=== PATIENT | female | born 1940 | race Caucasian/White ===

== ENCOUNTER 2022-01-08 18:44 | Emergency (ER) | payer MEDICARE, SELFPAY ==
--- NOTE | ~2022-01-08 | XR_ITS ---
EXAMINATION: XR CHEST CLINICAL INFORMATION: Cough COMPARISON: None TECHNIQUE: Frontal view of the chest was obtained. FINDINGS: The mid-upper lung zones are grossly clear. There is no effusion. There is a density in the right base. Measures 1.3 cm. This could represent calcification anterior cartilage of the rib but an underlying lung nodule cannot be excluded. Left lung is grossly clear. XR/XR chest 1V IMPRESSION: No infiltrate or effusion. Density at the right base could be an unusual appearance to calcification of an anterior cartilage however an underlying lung nodule cannot be excluded. Consider oblique imaging versus CT to further evaluate
[2022-01-08 19:27] VITALS: BP 140/76; PULSE 74; O2SAT 99
[2022-01-08 19:35] VITALS: BP 134/65; PULSE 74; RESP 18; TEMP 36.1; O2SAT 97; BMI 24.7
[2022-01-08 20:10] LABS: Influenza A Negative (Negative)
[2022-01-08 20:11] LABS: COVID-19 Test Negative (Negative); IDNOW Serial# 16C4AD1C; Influenza B2 Negative (Negative)
--- NOTE | 2022-01-08 20:21 | ED.URI ---
HPI - URI/Sore Throat General Chief Complaint: Upper Respiratory Symptoms Stated Complaint: weakness Time Seen by Provider: 01/08/22 20:02 Source: patient Mode of arrival: EMS Limitations: no limitations History of Present Illness HPI Narrative: 81 yo female with hx of DM and MS reports 4 COVID shots and flu shot on Wednesday. Wednesday went to a movie theatre. Since Wednesday the patient c/o runny nose / sore throat and persistent cough that is making it hard to sleep / breath and hurting her ribs MD elicited complaint: cough, sore throat and rhinorrhea Onset (ago): day(s) (5) Consistency: constant Severity: moderate Description of mucous: clear Able to tolerate fluids by mouth: Yes Exacerbating factors: other (coughing) Relieving factors: nothing Associated symptoms: rhinorrhea, sore throat and cough Treatments prior to arrival: other (tessalon no relief) Related Data Previous Rx's Medication Instructions Recorded azithromycin 250 mg tablet See Rx Instructions PO .COMPLEX #6 01/08/22 tabs Allergies Allergy/AdvReac Type Severity Reaction Status Date / Time cephalexin [From Keflex] Allergy Anaphylaxis Verified 01/08/22 19:38 Penicillins [PCN] Allergy Anaphylaxis Verified 01/08/22 19:38 nirmatrelvir AdvReac Unknown Verified 01/08/22 19:38 [From Paxlovid (EUA)] ritonavir AdvReac Unknown Verified 01/08/22 19:38 [From Paxlovid (EUA)] Review of Systems Review of Systems: Constitutional : no Fever, no Chills, no fatigue, no Malaise ENT/Mouth : positive sore throat, positive runny nose Eyes: No Discharge Cardiovascular : No Chest Pain, No SOB Respiratory : pos Cough, No Sputum Gastrointestinal : No Nausea, No Vomiting, No Diarrhea Genitourinary : No Dysuria, No Urinary Frequency Musculoskeletal : no Myalgia Skin : No rash Neuro : No Headache PMFSH Past Medical History Attestation statement: The following information was validated with the patient. Medical History Diabetes mellitus Multiple sclerosis Social History Social History (Updated 01/08/22 @ 20:25 by Katy Goode DO) Patient Tobacco Use Status: Former Tobacco user Advance Directives: No Advance Directives Information Provided: No Physical Exam Vital Signs: Vital Signs: Last Vital Signs Temp 96.9 F 01/08/22 19:35 Pulse 74 01/08/22 19:35 Resp 18 01/08/22 19:35 BP 134/65 01/08/22 19:35 Pulse Ox 97 01/08/22 19:35 O2 Del Method 01/08/22 19:35 BMI result Body Mass Index 24.7 Appearance: Alert. Oriented X3. No acute distress. Eyes: Pupils equal, round and reactive to light. ENT: Pharynx normal. no erythema or swelling, normal TMs bilaterally Neck: Normal inspection. Neck supple. CVS: Normal heart rate and rhythm. Pulses normal. Respiratory: No respiratory distress. Breath sounds normal. Abdomen: Soft and non-tender. Skin: Skin warm and dry. Normal skin color. Extremities: No lower extremity edema. Neuro: Oriented X 3. No motor deficit. No sensory deficit. Course Course Course Narrative: can follow up with PCP regarding nodule MDM - URI/Sore Throat MDM Narrative Medical decision making narrative: 81 yo female with hx of MS and DM - reports cough / runny nose / sore throat x 5 days - not toxic, normal VS, no hypoxia, will obtain CXR and swabs. Provide anti tussive. Lab Data Labs: Lab Results 01/08/22 01/08/22 Range/Units 19:40 19:40 COVID-19 ([facility]REE) Negative (Negative) COVID-19 Clin Com See Note Influenza Type A (JIMMY) Negative (Negative) Influenza Type B (JIMMY) Negative (Negative) Influenza A & B Note See Note Discharge Plan Discharge Clinical Impression: Acute bronchitis Qualifiers: Bronchitis organism: unspecified organism Qualified Code(s): J20.9 - Acute bronchitis, unspecified Patient Disposition: Home, Self-Care Instructions: Acute Bronchitis (ED) Additional Instructions: return to ED for any worsening symptoms or concerns negative COVID, negative influenza YOU WILL NEED OUTPATIENT CT CHEST WITH YOUR PRIMARY CARE DOCTOR TO EVALUATE LUNG NODULE - PLEASE CALL THIS WEEK XR/XR chest 1V IMPRESSION: No infiltrate or effusion. ? Density at the right base could be an unusual appearance to calcification of an anterior cartilage however an underlying lung nodule cannot be excluded. Consider oblique imaging versus CT to further evaluate Prescriptions: New azithromycin 250 mg tablet See Rx Instructions .ROUTE .COMPLEX Qty: 6 0RF Rx Instructions: For 250 mg dose pack: take 500 mg today (day 1), then 250 mg for 4 days (days 2-5) Referrals: Ace Wong PA [Primary Care Provider] - 3 days
[2022-01-08] MEDS: guaiFEN/Codeine SF 200/20/10ML 10 ML LIQUID 5 ML PO (20:30)
== END 2022-01-08 21:36 | disposition home or self-care (01) ==
PROVIDERS: Emergency Provider Emergency Medicine; PCP Physician Assistant Medical
DX: J20.9 Acute bronchitis, unspecified (principal); Z20.822 Contact with and (suspected) exposure to COVID-19; E11.9 Type 2 diabetes mellitus without complications; G35 Multiple sclerosis
CPT/HCPCS: 71045; 87502; 87635; 99282; 99283

== ENCOUNTER 2022-01-31 23:32 | Emergency (ER) | payer MEDICARE, SELFPAY ==
--- NOTE | ~2022-01-31 | CT_ITS ---
EXAMINATION: NONCONTRAST HEAD CT NONCONTRAST CERVICAL SPINE CT INDICATION INFORMATION: Fall COMPARISON: None TECHNIQUE: Separate noncontrast CT examinations of the head and cervical spine were performed. Coronal head CT images and coronal and sagittal cervical spine images were created at the technologist workstation. DLP: 976 mGy-cm DOSE LOWERING TECHNIQUES: This CT examination was performed using dose optimization techniques as appropriate, variously including the following: - Automated exposure control - Adjustment of mA and/or kV according to patient size (this includes techniques or standardized protocols for targeted exams were dose is matched to indication/reason for exam; i.e. extremities or head) - Use of iterative reconstruction technique FINDINGS: Head: There is no evidence of acute intracranial hemorrhage or territorial infarction. No abnormal mass-effect or midline shift is seen. Coulter to white matter differentiation is well preserved. No extra-axial fluid collections are identified. The ventricles are normal in size. There is mild periventricular white matter hypoattenuation consistent with chronic small vessel ischemic disease. Mild volume loss is noted. The osseous structures and soft tissues are normal. The mastoid air cells and visualized portions of the paranasal sinuses are well-aerated. Cervical spine: There is anatomic alignment of the vertebral bodies and posterior elements. Vertebral body heights are maintained. Diffuse disc space narrowing and endplate osteophytes throughout the cervical spine. Severe bilateral facet arthropathy. There is degenerative change at the atlantodens articulation. No evidence of acute fracture. No prevertebral soft tissue swelling. Visualized portions of the lung apices are unremarkable. Right thyroid nodule suspected to measure approximately 1.5 cm, with a few calcifications. CT/CT cervical spine wo IV con IMPRESSION: HEAD: No acute intracranial findings. CERVICAL SPINE: 1. No acute findings identified. Multilevel degenerative changes. 2. Right thyroid nodule measuring approximately 1.5 cm, which would be better assessed with ultrasound.
[2022-01-31 23:40] VITALS: BP 124/64; PULSE 83; O2SAT 95; BMI 25.0
[2022-02-01 00:05] VITALS: BP 119/64; PULSE 80; RESP 18; TEMP 36.4; O2SAT 97
--- NOTE | 2022-02-01 00:09 | ED.FALL ---
HPI - Fall General Chief Complaint: Fall Stated Complaint: fall Time Seen by Provider: 01/31/22 23:58 Source: patient and EMS Mode of arrival: EMS Limitations: no limitations History of Present Illness HPI Narrative: Patient comes to the emergency room complaining of a fall. Patient states that she has multiple sclerosis and has multiple falls. Patient states this was a mechanical fall, patient fell forward, hit her head in the front, did not lose consciousness. Patient states that she has localized pain in the front, does not have a headache, no visual changes, patient is not on blood thinners, denies neck pain. Patient states that after she called, she was able to get up by herself, she call her neighbors and they called 911 for her. Related Data Previous Rx's Medication Instructions Recorded azithromycin 250 mg tablet See Rx Instructions PO .COMPLEX #6 01/08/22 tabs Allergies Allergy/AdvReac Type Severity Reaction Status Date / Time cephalexin [From Keflex] Allergy Anaphylaxis Verified 01/08/22 19:38 Penicillins [PCN] Allergy Anaphylaxis Verified 01/08/22 19:38 nirmatrelvir AdvReac Unknown Verified 01/08/22 19:38 [From Paxlovid (EUA)] ritonavir AdvReac Unknown Verified 01/08/22 19:38 [From Paxlovid (EUA)] Review of Systems Review of Systems: Constitutional : No Weight loss, No Fever, No Chills, No Night Sweats, No Fatigue, No Malaise ENT/Mouth : No Hearing loss, No Ear Pain, No Nasal Congestion, No Sinus Pain, No Hoarseness, No sore throat, No Rhinorrhea, No Swallowing Difficulty Eyes: No Eye Pain, No Swelling, No Redness, No Foreign Body, No Discharge, No Vision Changes Cardiovascular : No Chest Pain, No SOB, No Dyspnea on Exertion, No Orthopnea, No Edema, No Palpitations Respiratory : No Cough, No Sputum, No Wheezing, No Smoke Exposure, No Dyspnea Gastrointestinal : No Nausea, No Vomiting, No Diarrhea, No Constipation, No abdominal Pain, No Hematochezia, No Melena Genitourinary : no irregular bleeding, No Dysuria, No Urinary Frequency, No Hematuria, No Urinary Incontinence, No Urgency, No Flank Pain, No Urinary Flow Changes, No Hesitancy Musculoskeletal : No joint pain, No Myalgias, No Joint Swelling Skin : No Skin Lesions, No rash, complaining of ecchymosis in the forehead Neuro : No Weakness, No Numbness, No Paresthesias, No Loss of Consciousness, No Dizziness, No Headache Psych : No Anxiety/Panic, No Depression, No SI/HI/AH/VH, No Social Issues, Heme/Lymph: No Bruising, No Bleeding,No Lymphadenopathy Endocrine : No Polyuria, No Polydipsia, No Temperature Intolerance PENDING SALE TO [facility] Past Medical History Medical History Diabetes mellitus Multiple sclerosis Social History Social History (Updated 01/08/22 @ 20:25 by Katy Goode DO) Alcohol intake: current Alcohol intake frequency: a few times a month Alcohol type: wine Patient Tobacco Use Status: Former Tobacco user Smoked in Last 30 Days: No Use of substances other than those prescribed or required for medical reasons: No Advance Directives: No Advance Directives Information Provided: No Physical Exam Vital Signs: Vital Signs: Last Vital Signs Temp 97.5 F 02/01/22 00:05 Pulse 80 02/01/22 00:05 Resp 18 02/01/22 00:05 BP 119/64 02/01/22 00:05 Pulse Ox 97 02/01/22 00:05 O2 Del Method 02/01/22 00:05 BMI result Body Mass Index 25.0 Const: Other: Appearance: Alert. Oriented X3. No acute distress. Eyes: Pupils equal, round and reactive to light. ENT: Pharynx normal. Neck: Normal inspection. Neck supple. No lymph nodes noted. No crepitus CVS: Normal heart rate and rhythm. Pulses normal. Normal S1 and S2 Respiratory: No respiratory distress. Breath sounds normal. No Wheezing. No rales Abdomen: Soft and nontender. No rigidity. No distention. Skin: Skin warm and dry. No abrasion or laceration in the forehead, questionable depression in the forehead Extremities: No lower extremity edema. No Lacerations. No Rash Neuro: Oriented X 3. No motor deficit. No sensory deficit. Moving all extremities. No slurred speech. CN 2 through 12 grossly intact Psych: calm, cooperative, normal affect Course Course Course Narrative: Patient states that other than the pain in the forehead she has no other injuries or pain. Patient states that she does have localized pain but does not want to take Tylenol or ibuprofen, states that she does not like to take any medications. Head CT and neck CT pending. I discussed the CT findings with the patient, no acute findings. However, patient does have a thyroid nodule that needs to be follow up by ultrasound with her primary care physician. I discussed with the patient if she needs additional services, case management consult. Patient declined, patient is by herself, states that she has also do not like to be discharged home. Patient is alert and oriented x4, no acute distress. MDM - Fall Imaging Data Head CT and cervical spine CT: Radiologist's impression: FINDINGS: Head: There is no evidence of acute intracranial hemorrhage or territorial infarction. No abnormal mass-effect or midline shift is seen. Coulter to white matter differentiation is well preserved. No extra-axial fluid collections are identified. The ventricles are normal in size. There is mild periventricular white matter hypoattenuation consistent with chronic small vessel ischemic disease. Mild volume loss is noted. The osseous structures and soft tissues are normal. The mastoid air cells and visualized portions of the paranasal sinuses are well-aerated. Cervical spine: There is anatomic alignment of the vertebral bodies and posterior elements. Vertebral body heights are maintained. Diffuse disc space narrowing and endplate osteophytes throughout the cervical spine. Severe bilateral facet arthropathy. There is degenerative change at the atlantodens articulation. No evidence of acute fracture. No prevertebral soft tissue swelling. Visualized portions of the lung apices are unremarkable. Right thyroid nodule suspected to measure approximately 1.5 cm, with a few calcifications. CT/CT cervical spine wo IV con IMPRESSION: HEAD: No acute intracranial findings. ? CERVICAL SPINE: 1.? No acute findings identified. Multilevel degenerative changes. 2.? Right thyroid nodule measuring approximately 1.5 cm, which would be better assessed with ultrasound. Discharge Plan Discharge Clinical Impression: Fall, Contusion Patient Disposition: Home, Self-Care Instructions: Fall Prevention for Older Adults (ED), Contusion in Adults (ED) Additional Instructions: Your CT scan of the neck shows a thyroid nodule on the right side. Please follow-up with your primary care physician as you may need further workup including ultrasound and possibly a biopsy. Please follow-up with your primary care physician tomorrow. If you have any worsening or new symptoms, please return to the emergency room or call 911 Prescriptions: No Action azithromycin 250 mg tablet See Rx Instructions .ROUTE .COMPLEX Qty: 6 0RF Rx Instructions: For 250 mg dose pack: take 500 mg today (day 1), then 250 mg for 4 days (days 2-5)
--- NOTE | 2022-02-01 00:21 | PC.NURSE ---
Pt is a/o x 5, pt V/S are stable.Pt collar was removed in order by the provider. Pt reports living at home and being independent, she has cane as needed. No edema, + skin turgor. pupil were reactive to light. According to pt, Pt was changing her pajamas when she tripped landing on her face. Alos, Pt reports drinking Vodka today at her grandson weeding. will continue to monitor.
== END 2022-02-01 02:18 | disposition home or self-care (01) ==
PROVIDERS: Emergency Provider Emergency Medicine; PCP Physician Assistant Medical
DX: S00.93XA Contusion of unspecified part of head, initial encounter (principal); R51.9 Headache, unspecified; M54.2 Cervicalgia; W01.0XXA Fall on same level from slipping, tripping and stumbling without subsequent striking against object, initial encounter; Y93.9 Activity, unspecified; Y92.9 Unspecified place or not applicable; Y99.9 Unspecified external cause status
CPT/HCPCS: 70450; 72125; 99284

== ENCOUNTER 2022-12-28 10:28 | Emergency (ER) | payer MEDICARE, SELFPAY ==
--- NOTE | ~2022-12-28 | XR_ITS ---
EXAMINATION: XR CHEST CLINICAL INFORMATION: Chest pain COMPARISON: Chest 01/08/2022 TECHNIQUE: 2 views of the chest were obtained. 11:43 AM FINDINGS: The patient is slightly rotated on the PA view. The lungs are well expanded and clear. No focal consolidation, interstitial pulmonary edema or pneumothorax. The cardiomediastinal silhouette is within normal limits. There is marked calcification of the thoracic aorta indicative of atherosclerotic disease. No pleural effusion. Evidence of old fracture of the proximal humerus. There is mild and moderate compression of mid thoracic vertebral bodies. XR/XR chest 2V IMPRESSION: No acute cardiopulmonary disease.
[2022-12-28 10:34] VITALS: BP 139/62; BP 163/82; PULSE 51; PULSE 93; RESP 16; TEMP 36.9; O2SAT 96; O2SAT 99; BMI 23.8
--- NOTE | 2022-12-28 10:36 | ECG_ITS ---
Test Reason : CP Blood Pressure : / mmHG Vent. Rate : 081 BPM Atrial Rate : 081 BPM P-R Int : 198 ms QRS Dur : 064 ms QT Int : 368 ms P-R-T Axes : 043 004 032 degrees QTc Int : 427 ms Normal sinus rhythm Low voltage QRS Borderline ECG No previous ECGs available Referred By: Generic ED Physician Electronically Signed By:SAVANNA ANNA
--- NOTE | 2022-12-28 10:53 | PC.NURSE ---
patient a&ox3, iv previously inserted by ems, behavioral health specialist applied- nsr on monitor, vss, pt c/o 10/05 rt chest pain which she states increases with movement, denies sob/nausea, will continue to monitor
--- NOTE | 2022-12-28 11:00 | ED.CHESTPAIN ---
HPI - Chest Pain General Chief Complaint: Chest Pain Stated Complaint: CP, HTN Time Seen by Provider: 12/28/22 10:51 Source: patient, EMS, RN notes reviewed and old records reviewed Mode of arrival: EMS History of Present Illness HPI narrative: 82-year-old female with a past medical history of ACS, diabetes, MS, presenting to the ED via EMS complaining of constant right-sided chest pain x 3 days worsening today. Admits to taking [id number] at home, given 1 spray and nitro by EMS. Admits to continued pain. Denies other symptoms including nausea/vomiting, SOB, numbness/tingling, pedal edema MD complaint: chest pain Related Data Previous Rx's Medication Instructions Recorded azithromycin 250 mg tablet See Rx Instructions PO .COMPLEX #6 01/08/22 tabs cyclobenzaprine 5 mg tablet 5 mg PO Q8H PRN pain (scale score 12/28/22 7-10) 5 days #10 tabs lidocaine 5 % topical patch 1 patch topical DAILY PRN pain #30 12/28/22 (Lidoderm) ea Allergies Allergy/AdvReac Type Severity Reaction Status Date / Time cephalexin [From Keflex] Allergy Anaphylaxis Verified 12/28/22 10:34 Penicillins [PCN] Allergy Anaphylaxis Verified 12/28/22 10:34 nirmatrelvir AdvReac Unknown Verified 12/28/22 10:34 [From Paxlovid (EUA)] ritonavir AdvReac Unknown Verified 12/28/22 10:34 [From Paxlovid (EUA)] Review of Systems Review of Systems: Constitutional: No Fever, No Chills, No Fatigue, No Malaise ENT/Mouth: No Ear Pain, No Nasal Congestion, No sore throat, No Rhinorrhea, No Swallowing Difficulty Eyes: No Eye Pain, No Swelling, No Redness, No Vision Changes Cardiovascular: +Chest Pain, No SOB, No Dyspnea on Exertion, No Orthopnea, No Edema, No Palpitations Respiratory: No Cough, No Sputum,No Dyspnea Gastrointestinal: No Nausea, No Vomiting, No Diarrhea, No Constipation, No Abdominal pain Genitourinary: No Dysuria, No Urinary Frequency, No Hematuria, No Flank Pain Musculoskeletal: No joint pain, No Myalgias, No Joint Swelling Skin: No Skin Lesions, No rash Neuro: No Weakness, No Numbness, No Paresthesias, No Loss of Consciousness, No Dizziness, No Headache Yes all other systems are reviewed and are negative Constitutional: Constitutional: Reports as per [facility] Past Medical History Attestation statement: The following information was validated with the patient. Source: old records reviewed Medical History Cardiac arrest Diabetes mellitus Multiple sclerosis Social History Social History Alcohol intake: current Alcohol intake frequency: holidays/special occasions only Alcohol type: wine Patient Tobacco Use Status: Former Tobacco user Smoked in Last 30 Days: No Use of substances other than those prescribed or required for medical reasons: No Advance Directives: No Advance Directives Information Provided: Yes Physical Exam Vital Signs: Vital Signs: Last Vital Signs Temp 98.1 F 12/28/22 14:00 Pulse 74 12/28/22 14:00 Resp 16 12/28/22 14:00 BP 131/62 12/28/22 14:00 Pulse Ox 98 12/28/22 14:00 O2 Del Method Room Air 12/28/22 14:00 BMI result Body Mass Index 23.8 Const: General: cooperative, healthy appearing and no acute distress Orientation/consciousness: patient oriented x3 Limitations: no limitations HEENT: Head: Yes normal to inspection and Yes atraumatic Ears: hearing grossly normal bilaterally General nose exam: Normal external nose present Face and sinus: Yes normal facial exam Eyes: General: appearance normal, both eyes and all related structures EOM: EOMs intact bilaterally Neck: Neck: Yes normal visual inspection and Yes no meningeal signs Chest: Chest palpation & inspection: normal inspection of the chest, no crepitus and tenderness (Right anterior chest wall, reproducing subjective complaint) Resp: Effort & Inspection: normal respiratory effort and no respiratory distress Auscultation: clear to auscultation bilaterally, no crackles, no rhonchi and no wheezes Cardio: Rate: regular rate Heart sounds: S1 normal heart sound present and S2 normal heart sound present GI: Inspection: Yes normal to inspection Palpation (GI): Soft to palpation, nontender, no guarding and not rigid : General: Yes no CVA tenderness Back/Spine/Pelvis: Back: no CVA tenderness Skin: Rashes: no rashes Wounds: no wounds Neuro: General: patient oriented x3, tone normal, moves all extremities, no meningeal signs and no focal motor deficits Cranial nerves: Yes CN's II-XII intact bilaterally Gait exam (Neuro): Normal gait present Extrem: General: Yes normal to inspection, Yes no pedal edema and Yes no calf tenderness Course Course Course Narrative: -1218--no leukocytosis. H/H stable. BUN of 24, creatinine of 1.68 >> patient with known CKD, labs from 10/21/22 showing Cr 1.7/BUN 31 (from patient's portal) -COVID-19 negative -1500--troponin x2 negative, OR unlikely XR chest 2V IMPRESSION: No acute cardiopulmonary disease. Results discussed with patient including worrisome signs and symptoms and strict return precautions, and when to return to the emergency department. They verbalized understanding and feel safe for discharge at this time. Medications Administered Discontinued Medications Generic Name Dose Route Start Last Admin Trade Name Freq PRN Reason Stop Dose Admin Cyclobenzaprine HCl 5 mg 12/28/22 15:06 12/28/22 15:34 Cyclobenzaprine Hcl 5 Mg Tablet PO 12/28/22 15:07 5 mg ONCE ONE Administration Lidocaine 1 patch 12/28/22 15:06 12/28/22 15:35 Lidocaine 4 % Patch Adh..Patch TRANSDERMA 12/28/22 15:07 1 patch ONCE ONE Administration Protocol Medical Decision Making Medical Decision Making [facility] Narrative: 82-year-old female with a past medical history of ACS, diabetes, MS, presenting to the ED via EMS complaining of constant right-sided chest pain x 3 days worsening today. On exam vital signs stable, NAD, nontoxic appearing chest pain reproducible, lungs CTA, no pedal edema. Concern for ACS vs costochondritis. Rule out pneumonia/viral illness. Lower suspicion for CHF, PE or DVT. Unlikely dissection Plan: EKG, labs, CXR, viral testing Please refer to course for remaining clinical decision making, interpretation of labs/imaging results, and discussions with consultants and/or family members. Differential Diagnosis Differential Diagnoses: The differential diagnosis associated with the presentation includes As above Admission/Observation Consideration of admission/observation: Escalation of care including admission/observation considered Lab Data [facility] Lab Attestation statement: I reviewed the patient's lab results. 12/28/22 11:31 12/28/22 11:31 Labs: Lab Results 12/28/22 12/28/22 12/28/22 Range/Units 11:21 11:31 14:15 WBC 8.0 (4.8-10.8) X10*3/uL RBC 3.95 L (4.20-5.50) X10*6/uL Hgb 11.0 L (12.0-16.0) g/dl Hct 34.4 L (37.0-47.0) % MCV 87.1 (80.0-98.0) fL MCH 27.8 (27.0-33.0) pg MCHC 32.0 (31.0-35.0) g/dl RDW 13.5 (11.0-16.0) % Plt Count 266 (160-400) X10*3/uL MPV 9.8 (9.4-12.3) fL Immature Gran % (Auto) 0.5 H (0.0-0.4) % Neut % (Auto) 78.8 H (45-73) % Lymph % (Auto) 11.5 L (20-40) % [place] % (Auto) 7.5 (2-11) % Eos % (Auto) 1.1 (0-4) % Baso % (Auto) 0.6 (0-2) % Lymph # (Auto) 0.9 L (1.2-4.9) X10*3/uL [place] # (Auto) 0.6 (0.1-1.2) X10*3/uL Eos # (Auto) 0.1 (0.0-0.4) X10*3/uL Baso # (Auto) 0.1 (0.0-0.2) X10*3/uL Abs Immat Gran (auto) 0.04 H (0.00-0.03) X10*3/uL Absolute Neuts (auto) 6.3 (2.0-8.3) x10*3/uL Absolute Nucleated RBC 0.000 (0.0-0.012) X10*3/uL Nucleated RBC % (auto) 0.0 (0.0-0.2) /100WBC Sodium 136 (135-145) mmol/L Potassium 5.0 (3.3-5.1) mmol/L Chloride 99 (96-108) mmol/L Carbon Dioxide 27 (22-29) mmol/L Anion Gap 15 (12-20) BUN 24 H (9-16) mg/dL Creatinine 1.68 H (0.5-1.4) mg/dL Estim Creat Clear Calc 20.4 Estimated GFR 29 POC Glucose 105 (60-115) mg/dL Random Glucose 100 (60-115) mg/dL Calcium 10.0 (8.4-10.2) mg/dL Total Bilirubin 0.4 (0.0-1.0) mg/dL Direct Bilirubin 0.2 (0.0-0.5) mg/dL AST 16 (5-31) U/L ALT 16 (0-31) U/L Alkaline Phosphatase 74 (39-117) U/L Troponin I High Sens < 2.7 < 2.7 (<3.5-17.0) ng/L Total Protein 6.8 (6.5-8.0) g/dL Albumin 3.8 (3.5-5.0) g/dL COVID-19 (SREE) Negative (Negative) COVID-19 Clin Com See Note Independent Interpretation I performed an independent interpretation of an: EKG (EKG normal sinus rhythm at a rate of 81. QTC 427. No previous to compare. No STEMI) Radiology Impression Discussion of test interpretation with radiology: I have reviewed the radiologist's reading. Independent Historian Clinical information obtained from an independent historian. History obtained from or confirmed by: EMS External Record Review External record reviewed: Inpatient record, Office record, Outpatient record, Prior outpatient labs, Prior outpatient radiology, Primary care record and Outside ED record Tests considered The following testing was considered but not selected: As above Chronic Conditions Patient?s care impacted by: Diabetes Discharge Plan Discharge Clinical Impression: Atypical chest pain Patient Disposition: Home, Self-Care Instructions: Chest Pain (DC) Additional Instructions: Your blood work and chest x-ray are reassuring You tested negative for COVID Please follow up with your doctor and Cardiology Flexeril is a muscle relaxer, take at night as it makes you drowsy, do not drive, drink alcohol, or operate machinery while taking it Lidoderm patches are numbing patches, apply to painful area Prescriptions: New lidocaine [Lidoderm] 5 % adhesive patch,medicated 1 patch topical DAILY MDD remove after 12 hours PRN (Reason: pain) Qty: 30 0RF Rx Instructions: leave on most painful area for up to 12 hrs cyclobenzaprine 5 mg tablet 5 mg PO Q8H PRN (Reason: pain (scale score 7-10)) 5 Days Qty: 10 0RF No Action azithromycin 250 mg tablet See Rx Instructions .ROUTE .COMPLEX Qty: 6 0RF Rx Instructions: For 250 mg dose pack: take 500 mg today (day 1), then 250 mg for 4 days (days 2-5) Referrals: [facility] [place] Cardiovascular Services [Provider Group] Ace Wong PA [Primary Care Provider] - Interventions: ED Discharge Assessment Last Done: 12/28/22 15:50 Discharge Date/Time: 12/28/22 15:50
[2022-12-28 11:24] LABS: Glucose, Whole Blood 105 mg/dL (60-115)
[2022-12-28 11:37] LABS: MANUAL DIFF FLAG NO
[2022-12-28 11:43] LABS: Basophils Absolute Auto 0.1 X10*3/uL (0.0-0.2); Basophils Percent Auto 0.6 % (0-2); Eosinophils Absolute Auto 0.1 X10*3/uL (0.0-0.4); Eosinophils Percent Auto 1.1 % (0-4); Hematocrit 34.4 % (37.0-47.0); Imm Gran Abs Auto 0.04 X10*3/uL (0.00-0.03); Imm Gran Pct Auto 0.5 % (0.0-0.4); Lymphocytes Absolute Auto 0.9 X10*3/uL (1.2-4.9); Lymphocytes Percent Auto 11.5 % (20-40); Mean Corpuscular Hemoglobin 27.8 pg (27.0-33.0); Mean Corpuscular Volume 87.1 fL (80.0-98.0); Mean Platelet Volume 9.8 fL (9.4-12.3); Monocytes Absolute Auto 0.6 X10*3/uL (0.1-1.2); Monocytes Percent Auto 7.5 % (2-11); Neutrophils Absolute Auto 6.3 x10*3/uL (2.0-8.3); Neutrophils Percent Auto 78.8 % (45-73); Platelet Count 266 X10*3/uL (160-400); Red Blood Count 3.95 X10*6/uL (4.20-5.50); Red Cell Distribution Width 13.5 % (11.0-16.0)
[2022-12-28 11:54] LABS: Anion Gap 15 (12-20); Blood Urea Nitrogen 24 mg/dL (9-16); Carbon Dioxide 27 mmol/L (22-29); Chloride 99 mmol/L (96-108); Creatinine Clr Calc Pharmacy 20.4; Estimated Glomerular Filt Rate 29; Glucose Random 100 mg/dL (60-115); Sodium 136 mmol/L (135-145)
[2022-12-28 11:55] LABS: Alanine Aminotransferase 16 U/L (0-31); Albumin Level 3.8 g/dL (3.5-5.0); Alkaline Phosphatase 74 U/L (39-117); Aspartate Amino Transferase 16 U/L (5-31); Bilirubin Direct 0.2 mg/dL (0.0-0.5); Bilirubin Total 0.4 mg/dL (0.0-1.0); Total Protein 6.8 g/dL (6.5-8.0)
[2022-12-28 12:00] VITALS: BP 127/57; PULSE 73; RESP 16; TEMP 36.8; O2SAT 98
[2022-12-28 12:03] LABS: COVID-19 Test Negative (Negative); IDNOW Serial# BCCEAD1C
[2022-12-28 12:10] LABS: Troponin-I High Sensitivity < 2.7 ng/L (<3.5-17.0)
--- NOTE | 2022-12-28 12:50 | PC.NURSE ---
patient a&ox3, nurse practitioner hospitalist intact nsr on monitor, vss, pt states she has c/o 8-10/10 pain depending on if she is moving or laying still, family at bedside, call caruso within reach, will continue to monitor
[2022-12-28 14:00] VITALS: BP 131/62; PULSE 74; RESP 16; TEMP 36.7; O2SAT 98
[2022-12-28 14:43] LABS: Troponin-I High Sensitivity < 2.7 ng/L (<3.5-17.0)
[2022-12-28] MEDS: Cyclobenzaprine HCl 5 MG TABLET PO (15:34)
[2022-12-28] MEDS: Lidocaine 4 % Patch ADH..PATCH 1 PATCH TRANSDERMA (15:35)
== END 2022-12-28 15:50 | disposition home or self-care (01) ==
PROVIDERS: Physician Assistant; Emergency Provider Emergency Medicine; PCP Physician Assistant Medical
DX: R07.89 Other chest pain (principal); I10 Essential (primary) hypertension; Z87.891 Personal history of nicotine dependence; Z20.822 Contact with and (suspected) exposure to COVID-19; Z20.828 Contact with and (suspected) exposure to other viral communicable diseases; Z79.899 Other long term (current) drug therapy
CPT/HCPCS: 36415; 71046; 80048; 80076; 82947; 84484; 85025; 87635; 93005; 99283; 99285

== ENCOUNTER 2023-03-22 19:32 | Observation (INO) | payer MEDICARE, SELFPAY ==
--- NOTE | ~2023-03-22 | CT_ITS ---
EXAM: CT scan of the head and cervical spine. INDICATION: Reason for Exam Syncope and fall TECHNIQUE: A noncontrast CT scan was performed from the skull base to the vertex. A noncontrast CT scan of the cervical spine was performed from the base of the skull through T1 at 2.5 mm and 1.25 mm collimation. Coronal and sagittal reformats were obtained at the acquisition workstation. This CT examination was performed using dose optimization techniques as appropriate, variously including the following: *Automated exposure control *Adjustment of mA and/or kV according to patient size (this includes techniques or standardized protocols for targeted exams where dose is matched to indication/reason for exam; i.e. extremities or head) *Use of iterative reconstruction technique DLP: 629 and 329 mGy-cm COMPARISON: 02/01/2022 FINDINGS: Head: There is no evidence of acute intracranial hemorrhage or territorial infarction. Coulter-white matter differentiation is preserved. No abnormal mass effect or midline shift. No extra-axial fluid collections. Scattered periventricular and deep white matter hypodensities consistent with microangiopathy. The ventricles and sulcal spaces are proportional without hydrocephalus. Proportional prominence of the ventricles and sulcal spaces. No acute osseous or soft tissue abnormalities. The mastoid air cells and visualized portions of the paranasal sinuses are well aerated. Cervical Spine: The atlantooccipital and atlantoaxial articulations remain well aligned. Straightening of the normal cervical lordosis. Otherwise, there is anatomic alignment of the vertebral bodies and posterior elements. No evidence of acute fracture or subluxation. The rest degenerative disc disease throughout similar to baseline.. There is no prevertebral soft tissue swelling. The thyroid gland and remaining cervical soft tissues are stable. Right-sided thyroid nodule again noted.. The lung apices demonstrate no abnormalities. CT/CT cervical spine wo IV con IMPRESSION: No acute intracranial pathology. No acute fracture subluxation cervical spine.
--- NOTE | ~2023-03-22 | XR_ITS ---
EXAMINATION: CHEST AND RIGHT SHOULDER CLINICAL INFORMATION: Fall with chest and shoulder pain COMPARISON: Chest radiograph 12/28/2022 TECHNIQUE: Single view chest with 2 views right shoulder FINDINGS: The heart and pulmonary vessels are unremarkable. No infiltrates, effusions or lung masses are seen. Of note, there is a new fracture present of the right humeral neck at the site of a previously healed old fracture. There is anteromedial displacement of the distal fracture fragment. XR/XR shoulder RT min 2V IMPRESSION: 1. No acute intrathoracic disease. 2. New right humeral neck fracture.
--- NOTE | ~2023-03-22 | XR_ITS ---
EXAMINATION: CHEST AND RIGHT SHOULDER CLINICAL INFORMATION: Fall with chest and shoulder pain COMPARISON: Chest radiograph 12/28/2022 TECHNIQUE: Single view chest with 2 views right shoulder FINDINGS: The heart and pulmonary vessels are unremarkable. No infiltrates, effusions or lung masses are seen. Of note, there is a new fracture present of the right humeral neck at the site of a previously healed old fracture. There is anteromedial displacement of the distal fracture fragment. XR/XR chest 1V IMPRESSION: 1. No acute intrathoracic disease. 2. New right humeral neck fracture.
[2023-03-22 19:35] VITALS: BP 107/68; PULSE 68; BMI 24.6
[2023-03-22 19:43] VITALS: BP 130/43; PULSE 78; RESP 18; TEMP 36.7
--- NOTE | 2023-03-22 19:52 | ECG_ITS ---
Test Reason : SYNCOPE Blood Pressure : / mmHG Vent. Rate : 078 BPM Atrial Rate : 078 BPM P-R Int : 210 ms QRS Dur : 072 ms QT Int : 404 ms P-R-T Axes : 042 -03 023 degrees QTc Int : 460 ms Sinus rhythm with 1st degree A-V block Low voltage QRS Borderline ECG When compared with ECG of 28-DEC-2022 10:46, No significant change was found Referred By: Jazzy Wise Electronically Signed By:TEZ WARNER
--- NOTE | 2023-03-22 19:56 | ED_ITS ---
HPI - Fall General Chief Complaint: Fall Stated Complaint: FALL FORWARD Time Seen by Provider: 03/22/23 19:42 Source: patient and EMS Mode of arrival: EMS Limitations: no limitations History of Present Illness HPI Narrative: 82-year-old female came in by ambulance for evaluation after sustained a fall. Patient normally lives home alone independently patient still drive came in by ambulance after she sustained a fall, patient does not remember the mechanism of the fall or after, unknown time for LOC, patient is complaining of cut in her lower lip, and right shoulder deformity with pain. Patient declined chest pain or SOB or abdominal pain. Not on AC. Related Data Previous Rx's Medication Instructions Recorded azithromycin 250 mg tablet See Rx Instructions PO .COMPLEX #6 01/08/22 tabs cyclobenzaprine 5 mg tablet 5 mg PO Q8H PRN pain (scale score 12/28/22 7-10) 5 days #10 tabs lidocaine 5 % topical patch 1 patch topical DAILY PRN pain #30 12/28/22 (Lidoderm) ea Allergies Allergy/AdvReac Type Severity Reaction Status Date / Time cephalexin [From Keflex] Allergy Anaphylaxis Verified 12/28/22 10:34 Penicillins [PCN] Allergy Anaphylaxis Verified 12/28/22 10:34 nirmatrelvir AdvReac Unknown Verified 12/28/22 10:34 [From Paxlovid (EUA)] ritonavir AdvReac Unknown Verified 12/28/22 10:34 [From Paxlovid (EUA)] Review of Systems 2 Review of Systems: All other systems are reviewed and are negative Constitutional: Reports as per HPI and Reports no additional constitutional complaints Eyes: Reports as per HPI and Reports no additional eye complaints Reports system reviewed and no additional complaints, except as documented Cardiovascular: Reports as per HPI and Reports no additional cardiovascular complaints Respiratory: Reports as per HPI and Reports no additional respiratory complaints Gastrointestinal: Reports as per HPI and Reports no additional gastrointestinal complaints Genitourinary: Reports no additional female genitourinary complaints Musculoskeletal: Reports no additional musculoskeletal complaints Skin/Breast: Reports system reviewed and no additional complaints, except as docu Psychiatric: Reports no additional psychiatric complaints Endocrine: Reports no additional endocrine complaints Hematologic/Lymphatic: Reports no additional hematologic/lymphatic complaints Allergic/Immunologic: Reports no additional allergic/immunologic complaints Reports system reviewed and no additional complaints, except as documented and Reports Abnormal speech present [facility] Past Medical History Medical History Cardiac arrest Diabetes mellitus Multiple sclerosis Social History Social History Alcohol intake: current Alcohol intake frequency: holidays/special occasions only Alcohol type: wine Patient Tobacco Use Status: Former Tobacco user Advance Directives: No Advance Directives Information Provided: No Physical Exam 2 Vital Signs: Vital Signs: Last Vital Signs Temp 97.6 F 03/22/23 22:17 Pulse 85 03/22/23 22:17 Resp 15 03/22/23 22:17 BP 121/50 L 03/22/23 22:17 Pulse Ox 97 03/22/23 22:17 O2 Del Method Room Air 03/22/23 22:17 O2 Flow Rate 95 03/22/23 19:43 BMI result Body Mass Index 24.6 Vital signs have been reviewed and appear to be correct. Blood pressure elevated. Heart rate normal. Respiratory rate normal. Temperature normal. Oxygen saturation normal. Appearance: Alert. Oriented X3. No acute distress. Head: Normal external exam. Normocephalic. Atraumatic. No Woo signs noted. No raccoon eyes noted, 1 cm cut on the inner surface of the lower lip start from cruz line and the inner mucosa, no active bleeding. Eyes: PERRLA. EOMI. Conjunctiva and sclera normal. Eyelids normal. ENT: TM's Normal. Pharynx normal. Uvula midline. Moist mucous membranes. No trismus noted. No drooling noted. No muffled voice noted. Neck: Normal inspection. Neck supple. FROM. No adenopathy. Thyroid Normal. No meningeal signs. No neck mass noted. CVS: Normal heart rate and rhythm. Heart sound normal. No murmurs noted. Pulses normal throughout. Respiratory: No respiratory distress. Painless inspiration. Breath sounds normal. No wheezes/rales/rhonchi noted. Chest nontender. No accessory muscle usage noted or decreased air movement noted. Abdomen: Soft and nontender. Bowel sounds normal in all 4 quadrants. No distention noted. No organomegaly noted. No visible injury noted. Back: No CVA tenderness. Full range of motion noted. Skin: Skin warm and dry. Normal skin color. Normal skin turgor. No rashes/lesions/lacerations noted. Extremities: Right shoulder held in adduction with very painful abduction, deformity to the shoulder limited exam due to pain. Neuro: Oriented X 3. Cranial nerve exam: II-XII are grossly intact No motor deficit. No sensory deficit. Reflexes normal. Course Reevaluation(s) Reevaluation #1: S/p syncope with right shoulder fracture and a lip laceration 1. Syncope patient will get admitted for cardiac monitoring. 2. Right shoulder fracture continue with sling will obtain inpatient orthopedic consultation. 3. Lip laceration please refer to procedure note. Time: 23:22 Medications Administered Discontinued Medications Generic Name Dose Route Start Last Admin Trade Name Freq PRN Reason Stop Dose Admin Lidocaine HCl 5 ml 03/22/23 22:02 03/22/23 22:37 Lidocaine Hcl 1 % Mpf 5 Ml Vial SUBCUT 03/22/23 22:03 5 ml ONCE ONE Administration Procedures Laceration Laceration 1: Site: lip Size (cm): 4 Description: irregular and involves lid margin Depth: [id number] Local Anesthetic: lidocaine 1% Amount of anesthesia used (mL): 3 Pre-repair: wound explored, irrigated extensively and deep structures intact Skin layer closed with: vicryl Size (cm): 4-0 Number of sutures: 7 Technique: simple, interrupted Medical Decision Making Differential Diagnosis Differential Diagnoses: The differential diagnosis associated with the presentation includes (Syncope, mechanical fall, ACS, intracranial bleed, cervical spine injury, right shoulder injury, electrolyte abnormality, severe anemia.) Admission/Observation Consideration of admission/observation: Escalation of care including admission/observation considered Consult Healthcare Provider Management of the patient was discussed with: Hospitalist (Dr. García) Lab Data MDM Lab Attestation statement: I reviewed the patient's lab results. 03/22/23 20:10 03/22/23 20:10 Labs: Lab Results 03/22/23 Range/Units 20:10 WBC 7.0 (4.8-10.8) X10*3/uL RBC 3.76 L (4.20-5.50) X10*6/uL Hgb 10.5 L (12.0-16.0) g/dl Hct 32.7 L (37.0-47.0) % MCV 87.0 (80.0-98.0) fL MCH 27.9 (27.0-33.0) pg MCHC 32.1 (31.0-35.0) g/dl RDW 14.0 (11.0-16.0) % Plt Count 272 (160-400) X10*3/uL MPV 10.2 (9.4-12.3) fL Immature Gran % (Auto) 0.6 H (0.0-0.4) % Neut % (Auto) 68.1 (45-73) % Lymph % (Auto) 22.1 (20-40) % [place] % (Auto) 7.5 (2-11) % Eos % (Auto) 1.3 (0-4) % Baso % (Auto) 0.4 (0-2) % Lymph # (Auto) 1.6 (1.2-4.9) X10*3/uL [place] # (Auto) 0.5 (0.1-1.2) X10*3/uL Eos # (Auto) 0.1 (0.0-0.4) X10*3/uL Baso # (Auto) 0.0 (0.0-0.2) X10*3/uL Abs Immat Gran (auto) 0.04 H (0.00-0.03) X10*3/uL Absolute Neuts (auto) 4.8 (2.0-8.3) x10*3/uL Absolute Nucleated RBC 0.000 (0.0-0.012) X10*3/uL Nucleated RBC % (auto) 0.0 (0.0-0.2) /100WBC Sodium 136 (135-145) mmol/L Potassium 4.4 (3.3-5.1) mmol/L Chloride 104 (96-108) mmol/L Carbon Dioxide 21 L (22-29) mmol/L Anion Gap 15 (12-20) BUN 23 H (9-16) mg/dL Creatinine 1.83 H (0.5-1.4) mg/dL Estim Creat Clear Calc 21.2 Estimated GFR 26 Random Glucose 141 H (60-115) mg/dL Calcium 8.7 D (8.4-10.2) mg/dL Total Bilirubin 0.2 (0.0-1.0) mg/dL Direct Bilirubin < 0.2 (0.0-0.5) mg/dL AST 23 (5-31) U/L ALT 14 (0-31) U/L Alkaline Phosphatase 71 (39-117) U/L Troponin I High Sens < 2.7 (<3.5-17.0) ng/L B-Natriuretic Peptide < 10 (<100) pg/mL Total Protein 6.8 (6.5-8.0) g/dL Albumin 3.5 (3.5-5.0) g/dL Lipase 79 H (8-78) U/L Independent Interpretation I performed an independent interpretation of an: Plain X-Ray (Chest: No acute intrathoracic pathology right humeral neck fracture.) and CT Scan (Head/C-spine: No acute intracranial pathology, no cervical spine injury.) Radiology Impression Discussion of test interpretation with radiology: I have reviewed the radiologist's reading. Discharge Plan Discharge Clinical Impression: Syncope, Closed right humeral fracture, Laceration of lip Patient Disposition: Admitted As Inpatient Prescriptions: No Action azithromycin 250 mg tablet See Rx Instructions .ROUTE .COMPLEX Qty: 6 0RF Rx Instructions: For 250 mg dose pack: take 500 mg today (day 1), then 250 mg for 4 days (days 2-5) lidocaine [Lidoderm] 5 % adhesive patch,medicated 1 patch topical DAILY MDD remove after 12 hours PRN (Reason: pain) Qty: 30 0RF Rx Instructions: leave on most painful area for up to 12 hrs cyclobenzaprine 5 mg tablet 5 mg PO Q8H PRN (Reason: pain (scale score 7-10)) 5 Days Qty: 10 0RF
[2023-03-22 20:15] LABS: MANUAL DIFF FLAG NO
[2023-03-22 20:16] LABS: Basophils Percent Auto 0.4 % (0-2); Eosinophils Absolute Auto 0.1 X10*3/uL (0.0-0.4); Eosinophils Percent Auto 1.3 % (0-4); Hematocrit 32.7 % (37.0-47.0); Hemoglobin 10.5 g/dl (12.0-16.0); Imm Gran Abs Auto 0.04 X10*3/uL (0.00-0.03); Imm Gran Pct Auto 0.6 % (0.0-0.4); Lymphocytes Absolute Auto 1.6 X10*3/uL (1.2-4.9); Lymphocytes Percent Auto 22.1 % (20-40); Mean Corpuscular HGB Conc 32.1 g/dl (31.0-35.0); Mean Corpuscular Hemoglobin 27.9 pg (27.0-33.0); Mean Platelet Volume 10.2 fL (9.4-12.3); Monocytes Absolute Auto 0.5 X10*3/uL (0.1-1.2); Monocytes Percent Auto 7.5 % (2-11); Neutrophils Absolute Auto 4.8 x10*3/uL (2.0-8.3); Neutrophils Percent Auto 68.1 % (45-73); Platelet Count 272 X10*3/uL (160-400); Red Blood Count 3.76 X10*6/uL (4.20-5.50)
[2023-03-22 20:33] LABS: Alanine Aminotransferase 14 U/L (0-31); Albumin Level 3.5 g/dL (3.5-5.0); Alkaline Phosphatase 71 U/L (39-117); Anion Gap 15 (12-20); Aspartate Amino Transferase 23 U/L (5-31); Bilirubin Direct < 0.2 mg/dL (0.0-0.5); Bilirubin Total 0.2 mg/dL (0.0-1.0); Blood Urea Nitrogen 23 mg/dL (9-16); Calcium 8.7 mg/dL (8.4-10.2); Carbon Dioxide 21 mmol/L (22-29); Chloride 104 mmol/L (96-108); Creatinine Clr Calc Pharmacy 21.2; Estimated Glomerular Filt Rate 26; Glucose Random 141 mg/dL (60-115); Lipase 79 U/L (8-78); Potassium 4.4 mmol/L (3.3-5.1); Sodium 136 mmol/L (135-145); Total Protein 6.8 g/dL (6.5-8.0)
[2023-03-22 20:39] LABS: B Type Natriuretic Peptide < 10 pg/mL (<100)
[2023-03-22 20:40] LABS: Troponin-I High Sensitivity < 2.7 ng/L (<3.5-17.0)
[2023-03-22 22:17] VITALS: BP 121/50; PULSE 85; RESP 15; TEMP 36.4; O2SAT 97
[2023-03-22] MEDS: Lidocaine HCl 1 % MPF 5 ML VIAL SUBCUT (22:37)
--- NOTE | 2023-03-22 23:55 | PM.IMHP ---
History of Present Illness Date of Service: 03/22/23 Attending physician on admission: Sav García Chief Complaint: Right soulder pain after a mechanical fall 82-year-old pleasant white female with history of hypertension, type 2 diabetes mellitus and multiple sclerosis and who lives at home alone comes to the emergency room for evaluation following a witnessed accidental fall with associated head strike and right arm pain. She was at her grandson's house for [place] dinner when she tripped on a step and fell hitting her head and loosing consciousness. She states that the next thing she recalls was getting helped onto a seat. She denies any additional complains at this time. Review of Systems Review of Systems: Yes all other systems are reviewed and are negative [facility] Medical History Cardiac arrest Diabetes mellitus Multiple sclerosis Social History Alcohol intake: current Alcohol intake frequency: holidays/special occasions only Alcohol type: wine Patient Tobacco Use Status: Former Tobacco user Advance Directives: No Advance Directives Information Provided: No Nutrition Risks: No Nutritional Risk Meds Allergies Allergy/AdvReac Type Severity Reaction Status Date / Time cephalexin [From Keflex] Allergy Anaphylaxis Verified 12/28/22 10:34 Penicillins [PCN] Allergy Anaphylaxis Verified 12/28/22 10:34 nirmatrelvir AdvReac Unknown Verified 12/28/22 10:34 [From Paxlovid (EUA)] ritonavir AdvReac Unknown Verified 12/28/22 10:34 [From Paxlovid (EUA)] Physical Exam Vital Signs and Narrative: Vital Signs: Last Vital Signs Temp 97.6 F 03/22/23 22:17 Pulse 85 03/22/23 22:17 Resp 15 03/22/23 22:17 BP 121/50 L 03/22/23 22:17 Pulse Ox 97 03/22/23 22:17 O2 Del Method Room Air 03/22/23 22:17 O2 Flow Rate 95 03/22/23 19:43 BMI result Body Mass Index 24.6 General: Well nourished elderly white female in bed. Awake, alert and oriented x 4. No apparent distress Eyes: No pallor or jaundice. PERRLA, EOMI HENT: Moist oral mucus membranes. No oropharyngeal lesions. Neck: Supple. No cervical adenopathy. No JVD Cardiovascular: Regular rate and rhythm. Normal heart sounds. No murmurs, rubs or gallops. No JVD. No peripheral edema. Respiratory: Normal respiratory effort with no accessory muscle use. CTAB. Gastrointestinal: Abdomen is soft, non-tender, non-distended. NABS. No hepatosplenomegaly Extremities: Left arm held in flexion at the elbow. Tenderness to touch around the elbow. Good peripheral pulses Skin: Warm/Dry. No rashes. No mottling. Capillary refill is < 2 seconds Neurological: AAOx4. Intact speech & cognition. Normal gait & balance. CN II - XII grossly intact but not individually tested. No motor or sensory deficits Hematologic: No bleeding. No ecchymosis. No swollen or tender lymph nodes. Psychiatric: Cooperative. Appropriate mood and affect . Results Labs 03/22/23 20:10 03/22/23 20:10 Labs: Laboratory Results - last 24 hr 03/22/23 20:10 MCV 87.0 MCH 27.9 MCHC 32.1 RDW 14.0 Plt Count 272 MPV 10.2 Immature Gran % (Auto) 0.6 H Neut % (Auto) 68.1 Lymph % (Auto) 22.1 [place] % (Auto) 7.5 Eos % (Auto) 1.3 Baso % (Auto) 0.4 Lymph # (Auto) 1.6 [place] # (Auto) 0.5 Eos # (Auto) 0.1 Baso # (Auto) 0.0 Abs Immat Gran (auto) 0.04 H Absolute Neuts (auto) 4.8 Absolute Nucleated RBC 0.000 Nucleated RBC % (auto) 0.0 Anion Gap 15 Estim Creat Clear Calc 21.2 Estimated GFR 26 Random Glucose 141 H Calcium 8.7 D Total Bilirubin 0.2 Direct Bilirubin < 0.2 AST 23 ALT 14 Alkaline Phosphatase 71 B-Natriuretic Peptide < 10 Total Protein 6.8 Albumin 3.5 Lipase 79 H ECG ECG interpretation date: 03/23/23 ECG interpretation time: 03:15 Prior ECG tracings: available for review Interpretation: NSR at 78 bpm with 1st degree AV block. No acute ischemic changes Imaging Radiologist's Impressions: Impressions Head &Cervical Spine CT 12/25/23 20:30 No acute intracranial pathology. No acute fracture subluxation cervical spine. Chest X-Ray 03/22/23 21:34 1. No acute intrathoracic disease. 2. New right humeral neck fracture. Shoulder X-Ray 03/22/23 21:34 1. No acute intrathoracic disease. 2. New right humeral neck fracture. Assessment and Plan (1) Syncope: Qualifiers: Syncope type: unspecified Qualified Code(s): R55 - Syncope and collapse Status: Acute (2) Closed right humeral fracture: Qualifiers: Encounter type: initial encounter Fracture alignment: nondisplaced Fracture morphology: 2-part Humerus Location: surgical neck Qualified Code(s): S42.224A - 2-part nondisplaced fracture of surgical neck of right humerus, initial encounter for closed fracture Status: Acute (3) Laceration of lip: Qualifiers: Encounter type: initial encounter Qualified Code(s): S01.511A - Laceration without foreign body of lip, initial encounter Status: Acute Plan 82-year-old pleasant white female with history of hypertension, type 2 diabetes mellitus and multiple sclerosis here with: 1. Right humeral neck fracture - arm placed in a sling - admit for pain control - she lives alone and will need discharge planning as may need to go to [facility]. 2. Syncope - family reported mechanical fall with head strike with resultant loss of consciousness - unclear if this was a syncopal episodes vs concussion with LOC - admit to telemetry and closely monitor 3. T2DM - insulin requiring - resume home medications - Insulin and Glipizide 4. Hypertension - resume Amlodipine and Lisinopril DVT: SC Lovenox CODE STATUS: Full code Total time managing care of this patient today: 55 minutes. Quality Stroke Does the patient have a stroke diagnosis?: No VTE Prior VTE?: No VTE Risk Level:: Medical - moderate - high VTE Device Contraindication: N/A - Device Ordered VTE Drug Contraindication: N/A - Med Ordered
[2023-03-23] VITALS (7 sets, daily range): BP systolic 100–139; BP diastolic 48–86; PULSE 77–82; RESP 16–20; TEMP 36.1–36.7; O2SAT 78–97
[2023-03-23] MEDS: Melatonin 3 MG TABLET 6 MG PO (00:17)
[2023-03-23] MEDS: Morphine Sulfate 4 MG/ML CARTRIDGE 2 MG IVPUSH ×2 (00:18→08:25)
[2023-03-23] MEDS: Enoxaparin Sodium 30 MG/0.3 ML SYRINGE SUBCUT ×2 (00:19→19:58)
[2023-03-23] MEDS: ondansetron HCL 4 MG/2 ML VIAL IVPUSH (00:19)
[2023-03-23] MEDS: 0.9 % Sodium Chloride Flush 3 ML SYRINGE IVFLUSH ×2 (00:20→08:28)
--- NOTE | 2023-03-23 01:42 | PC.NURSE ---
ADMIT : possible syncopal episosde. Per EMS mechanical fall via family however per pt she reports not remembering if she became dizzy prior to fall. Pt is diabetic and poc was 138 for EMS. Pt has lac on lower lip and R should pain that resulted to a R humeral FX. CT head WNL. Periwick in place and Morphine q 4 hours
[2023-03-23] MEDS: HYDROmorphone HCl 0.5 MG/0.5 ML SYRINGE IVPUSH (03:27)
--- NOTE | 2023-03-23 04:29 | PC.NURSE ---
[facility] will fax over med list for med rec
[2023-03-23 08:21] LABS: Glucose, Whole Blood 130 mg/dL (60-115)
[2023-03-23] MEDS: Escitalopram Oxalate 5 MG TABLET PO (09:06)
[2023-03-23] MEDS: amLODIPine Besylate 2.5 MG TABLET PO (09:06)
[2023-03-23] MEDS: lisinopriL 20 MG TABLET PO (09:06)
[2023-03-23] MEDS: 0.9 % Sodium Chloride 1,000 ML 75 ML IVCONT ×2 (09:06→22:34)
--- NOTE | 2023-03-23 10:14 | PM.EVENT ---
Event Note Date of Service: 03/23/23 Event Note: 82-year-old pleasant white female with history of hypertension, type 2 diabetes mellitus and multiple sclerosis and CKD , admitted with fracture of Humeral neck Creatinine was 1.6 and now at 1.83 DDX includes hypoperfusion/ATN Obstruction is a possibility AGN/AiN seem unlikely Suggest Keep I > O and SBP > 100mmHg; Avoid hypotension Check CPK and UA ( ordered) Watch urine output and creatinine. IF creatinine worsens, would check renal sonogram and hold ACEi Shall follow along. Thank you Time Spent With Patient Time: Total time managing care of this patient today ____ minutes.
--- NOTE | 2023-03-23 10:39 | HO.PM.IMPN ---
Subjective Subjective Date of Service: 03/23/23 Review of Systems Follow up fall, humeral fx some pain to right shoulder no nausea, vomiting, diarrhea Physical Exam Vital Signs: Vital Signs: Last Vital Signs Temp 97.8 F 03/23/23 08:55 Pulse 77 03/23/23 08:55 Resp 20 03/23/23 08:55 BP 139/86 03/23/23 08:55 Pulse Ox 95 03/23/23 08:55 O2 Del Method Room Air 03/23/23 08:55 O2 Flow Rate 95 03/22/23 19:43 BMI result Body Mass Index 24.6 Appearing in no acute distress head bruising to right side of face, stitches to inner right lower lip eyes pupils are PERRLA sclera is anicteric lung sounds are clear to auscultation heart regular rate rhythm, clear S1, S2 positive bowel sounds, abdomen is soft, nontender neuro patient is alert x3, no focal deficits Sling to right arm Objective Data Active Medications Acetaminophen (Acetaminophen 325 Mg Tablet) 650 mg PO Q6H PRN PRN Reason: Pain, Mild (Pain Scale 1-3) Al Hydroxide/Mg Hydroxide (Magnesium Hydrox/Alum Hydrox 30 Ml Oral.Susp) 30 ml PO Q4H PRN PRN Reason: Heartburn/Nausea Amlodipine Besylate (Amlodipine Besylate 2.5 Mg Tablet) 2.5 mg PO DAILY [facility]; Protocol Last Admin: 03/23/23 09:06 Dose: 2.5 mg Documented By: EUSEBIO Atorvastatin Calcium (Atorvastatin Calcium 80 Mg Tablet) 80 mg PO BEDTIME [facility] Enoxaparin Sodium (Enoxaparin Sodium 30 Mg/0.3 Ml Syringe) 30 mg SUBCUT BEDTIME [facility] Last Admin: 03/23/23 00:19 Dose: 30 mg Documented By: GAUTAM Escitalopram Oxalate (Escitalopram Oxalate 5 Mg Tablet) 5 mg PO DAILY [facility] Last Admin: 03/23/23 09:06 Dose: 5 mg Documented By: EUSEBIO Ferrous Sulfate (Ferrous Sulfate 324 Mg Tablet.Dr) 324 mg PO DAILY [facility] Sodium Chloride (Ns) 1,000 mls @ 75 mls/hr IVCONT .[id number] [facility] Last Admin: 03/23/23 09:06 Dose: 75 mls/hr Documented By: EUSEBIO Lisinopril (Lisinopril 20 Mg Tablet) 20 mg PO DAILY [facility]; Protocol Last Admin: 03/23/23 09:06 Dose: 20 mg Documented By: EUSEBIO Melatonin (Melatonin 3 Mg Tablet) 6 mg PO BEDTIME PRN PRN Reason: Insomnia Last Admin: 03/23/23 00:17 Dose: 6 mg Documented By: GAUTAM Morphine Sulfate (Morphine Sulfate 4 Mg/Ml Cartridge) 2 mg IVPUSH Q4H PRN; Protocol PRN Reason: Pain, Severe (Pain Scale 7-10) Last Admin: 03/23/23 08:25 Dose: 2 mg Documented By: EUSEBIO Ondansetron HCl (Ondansetron Hcl 4 Mg/2 Ml Vial) 4 mg IVPUSH Q8H PRN PRN Reason: Nausea and Vomiting Last Admin: 03/23/23 00:19 Dose: 4 mg Documented By: GAUTAM Oxycodone HCl (Oxycodone Hcl Immed Release 5 Mg Tablet) 5 mg PO Q6H PRN PRN Reason: Pain, Moderate(Pain Scale 4-6) Senna (Sennosides 8.6 Mg Tablet) 17.2 mg PO BEDTIME PRN PRN Reason: Constipation Sodium Chloride (0.9 % Sodium Chloride Flush 3 Ml Syringe) 3 ml IVFLUSH [facility] Last Admin: 03/23/23 08:28 Dose: 3 ml Documented By: EUSEBIO Labs 03/22/23 20:10 03/22/23 20:10 Labs: Laboratory Results - last 24 hr 03/22/23 03/23/23 20:10 08:17 MCV 87.0 MCH 27.9 MCHC 32.1 RDW 14.0 Plt Count 272 MPV 10.2 Immature Gran % (Auto) 0.6 H Neut % (Auto) 68.1 Lymph % (Auto) 22.1 [place] % (Auto) 7.5 Eos % (Auto) 1.3 Baso % (Auto) 0.4 Lymph # (Auto) 1.6 [place] # (Auto) 0.5 Eos # (Auto) 0.1 Baso # (Auto) 0.0 Abs Immat Gran (auto) 0.04 H Absolute Neuts (auto) 4.8 Absolute Nucleated RBC 0.000 Nucleated RBC % (auto) 0.0 Anion Gap 15 Estim Creat Clear Calc 21.2 Estimated GFR 26 POC Glucose 130 H Random Glucose 141 H Calcium 8.7 D Total Bilirubin 0.2 Direct Bilirubin < 0.2 AST 23 ALT 14 Alkaline Phosphatase 71 B-Natriuretic Peptide < 10 Total Protein 6.8 Albumin 3.5 Lipase 79 H Assessment and Plan (1) Closed right humeral fracture: Status: Acute Plan 82-year-old pleasant white female with history of hypertension, type 2 diabetes mellitus and multiple sclerosis here with right humeral fracture secondary to fall Right humeral neck fracture secondary to fall arm in a sling ortho consult pending PT/OT consult pending admit for pain control Syncope Unknown, daughter reports that she was at her family's house and was on her phone and fell and was difficult to arouse for about 10 minutes So far no bradycardia, hypotension, hypoglycemia May be a concussion after fall patient did have an episode of vomiting Head CT negative for any acute abnormality T2DM Sliding scale, ADA diet Hypertension Continue Amlodipine and Lisinopril DISPO plan for home vs STR DVT: CLEO Dong Attending Dr. Leach CODE STATUS: Full code Quality Stroke Does the patient have a stroke diagnosis?: No VTE Prior VTE?: No VTE Risk Level:: Medical - moderate - high VTE Device Contraindication: N/A - Device Ordered VTE Drug Contraindication: N/A - Med Ordered
--- NOTE | 2023-03-23 12:25 | MHC.CM.PN ---
DOMINIC 03/23. Pt lives at home alone self-care, has a cane and a walker but doesn't use them. Pts daughter will transport her home. HCP declined at this time, states she has all the paperwork at home and will fill out at some point. PCP: Dr. Ace Wong
--- NOTE | 2023-03-23 13:20 | MHC.CM.PN ---
PT recommended acute rehab. This CM met with pt to discuss and pt states she does not want to go to acute rehab at this time. CM will continue to follow.
--- NOTE | 2023-03-23 13:59 | PM.CNOR ---
History of Present Illness HPI Consult date: 03/23/23 Chief complaint: Right shoulder pain;syncope Narrative: 82 yo female admitted to the medical service due to LOC s/p fall which resulted in proximal humerus fracture right. She c/o mild discomfort. She is currently in a sling. Review of Systems Review of Systems: per hpi [facility] Past Medical History Medical History Cardiac arrest Diabetes mellitus Multiple sclerosis Social History Social History Household Members: None Housing: [facility] Do you presently have visiting nurse or other home services: No Alcohol intake: current Alcohol intake frequency: holidays/special occasions only Alcohol type: wine Patient Tobacco Use Status: Former Tobacco user Quit Date: 2007 Second Hand Smoke Exposure: No service: No Meds Allergies Allergy/AdvReac Type Severity Reaction Status Date / Time cephalexin [From Keflex] Allergy Anaphylaxis Verified 12/28/22 10:34 Penicillins [PCN] Allergy Anaphylaxis Verified 12/28/22 10:34 nirmatrelvir AdvReac Unknown Verified 12/28/22 10:34 [From Paxlovid (EUA)] ritonavir AdvReac Unknown Verified 12/28/22 10:34 [From Paxlovid (EUA)] Active Medications: Current Medications Acetaminophen (Acetaminophen 325 Mg Tablet) 650 mg PO Q6H PRN PRN Reason: Pain, Mild (Pain Scale 1-3) Al Hydroxide/Mg Hydroxide (Magnesium Hydrox/Alum Hydrox 30 Ml Oral.Susp) 30 ml PO Q4H PRN PRN Reason: Heartburn/Nausea Amlodipine Besylate (Amlodipine Besylate 2.5 Mg Tablet) 2.5 mg PO DAILY [facility]; Protocol Last Admin: 03/23/23 09:06 Dose: 2.5 mg Atorvastatin Calcium (Atorvastatin Calcium 80 Mg Tablet) 80 mg PO BEDTIME [facility] Last Admin: 03/23/23 11:35 Dose: Not Given Enoxaparin Sodium (Enoxaparin Sodium 30 Mg/0.3 Ml Syringe) 30 mg SUBCUT BEDTIME [facility] Last Admin: 03/23/23 00:19 Dose: 30 mg Escitalopram Oxalate (Escitalopram Oxalate 5 Mg Tablet) 5 mg PO DAILY [facility] Last Admin: 03/23/23 09:06 Dose: 5 mg Ferrous Sulfate (Ferrous Sulfate 324 Mg Tablet.Dr) 324 mg PO DAILY [facility] Last Admin: 03/23/23 11:35 Dose: Not Given Sodium Chloride (Ns) 1,000 mls @ 75 mls/hr IVCONT .[id number] [facility] Last Admin: 03/23/23 09:06 Dose: 75 mls/hr Lisinopril (Lisinopril 20 Mg Tablet) 20 mg PO DAILY [facility]; Protocol Last Admin: 03/23/23 09:06 Dose: 20 mg Melatonin (Melatonin 3 Mg Tablet) 6 mg PO BEDTIME PRN PRN Reason: Insomnia Last Admin: 03/23/23 00:17 Dose: 6 mg Morphine Sulfate (Morphine Sulfate 4 Mg/Ml Cartridge) 2 mg IVPUSH Q4H PRN; Protocol PRN Reason: Pain, Severe (Pain Scale 7-10) Last Admin: 03/23/23 08:25 Dose: 2 mg Ondansetron HCl (Ondansetron Hcl 4 Mg/2 Ml Vial) 4 mg IVPUSH Q8H PRN PRN Reason: Nausea and Vomiting Last Admin: 03/23/23 00:19 Dose: 4 mg Oxycodone HCl (Oxycodone Hcl Immed Release 5 Mg Tablet) 5 mg PO Q6H PRN PRN Reason: Pain, Moderate(Pain Scale 4-6) Senna (Sennosides 8.6 Mg Tablet) 17.2 mg PO BEDTIME PRN PRN Reason: Constipation Sodium Chloride (0.9 % Sodium Chloride Flush 3 Ml Syringe) 3 ml IVFLUSH QSHIFT [facility] Last Admin: 03/23/23 08:28 Dose: 3 ml Home Medications Medication Instructions Recorded Confirmed Last Taken Type amlodipine 2.5 mg tablet 2.5 mg PO DAILY 03/23/23 03/23/23 Unknown History atorvastatin 80 mg tablet 80 mg PO BEDTIME 03/23/23 03/23/23 Unknown History cholecalciferol (vitamin D3) 25 25 mcg PO DAILY 03/23/23 03/23/23 Unknown History mcg (1,000 unit) tablet diphenhydramine HCl 25 mg capsule 25 mg PO BEDTIME 03/23/23 03/23/23 Unknown History (Benadryl) dulaglutide 1.5 mg/0.5 mL 1.5 mg subcut Q7D 03/23/23 03/23/23 Unknown History subcutaneous pen injector (Trulicity) escitalopram oxalate 5 mg tablet 5 mg PO DAILY 03/23/23 03/23/23 Unknown History ferrous sulfate 325 mg (65 mg 325 mg PO DAILY 03/23/23 03/23/23 Unknown History iron) tablet glipizide 5 mg tablet 10 mg PO BID 03/23/23 03/23/23 Unknown History insulin glargine 100 unit/mL (3 8 unit subcut BEDTIME 03/23/23 Unknown History mL) subcutaneous pen (Lantus Solostar U-100 Insulin) lisinopril 20 mg tablet 20 mg PO DAILY 03/23/23 03/23/23 Unknown History loratadine 10 mg tablet 10 mg PO DAILY 03/23/23 03/23/23 Unknown History melatonin 10 mg tablet 10 mg PO BEDTIME 03/23/23 03/23/23 Unknown History Physical Exam Vital Signs: Vital Signs: Last Vital Signs Temp 97.0 F 03/23/23 11:29 Pulse 78 03/23/23 11:29 Resp 18 03/23/23 11:29 BP 100/59 L 03/23/23 11:29 Pulse Ox 92 03/23/23 11:29 O2 Del Method Room Air 03/23/23 11:29 O2 Flow Rate 95 03/22/23 19:43 BMI result Body Mass Index 24.6 Const: General: cooperative, comfortable and no acute distress Extrem: Other: Right shoulder normal to inspection. Swelling and tenderness over the proximal humerus. Anterior deltoid sensation intact. Elbow and wrist ROM intact. NVI. Results Labs 03/22/23 20:10 03/22/23 20:10 Labs: Abnormal lab results 03/22/23 03/23/23 Range/Units 20:10 08:17 RBC 3.76 L (4.20-5.50) X10*6/uL Hgb 10.5 L (12.0-16.0) g/dl Hct 32.7 L (37.0-47.0) % Immature Gran % (Auto) 0.6 H (0.0-0.4) % Abs Immat Gran (auto) 0.04 H (0.00-0.03) X10*3/uL Carbon Dioxide 21 L (22-29) mmol/L BUN 23 H (9-16) mg/dL Creatinine 1.83 H (0.5-1.4) mg/dL POC Glucose 130 H (60-115) mg/dL Random Glucose 141 H (60-115) mg/dL Lipase 79 H (8-78) U/L H & H 03/22/23 Range/Units 20:10 Hgb 10.5 L (12.0-16.0) g/dl Hct 32.7 L (37.0-47.0) % All other labs normal. Assessment and Plan (1) Closed right humeral fracture: Qualifiers: Encounter type: initial encounter Fracture alignment: nondisplaced Fracture morphology: 2-part Humerus Location: surgical neck Qualified Code(s): S42.224A - 2-part nondisplaced fracture of surgical neck of right humerus, initial encounter for closed fracture Status: Acute Plan Right proximal humerus fracture- non op sling for comfort no lifting or abduction/ER pendulums, PROM f/u in office in 6 weeks w xrays Procedures Date of Service Date of Service: 03/23/23
[2023-03-23] MEDS: oxyCODONE HCl Immed Release 5 MG TABLET PO (15:55)
[2023-03-23 16:19] LABS: Appearance Urine Clear; Color Urine Yellow; Glucose Urine UA Negative (Negative); Leukocyte Esterase Urine Trace (Negative); Nitrite Urine Negative (Negative); PH 6.5 (5.0-9.0); UMIC TRIGGER UA YES; Urine Blood Negative (Negative); Urine Ketones Negative (Negative); Urine Protein Negative (Neg-Trace)
[2023-03-23 16:24] LABS: Bacteria Urine None Seen (None Seen); Hyaline Casts Urine 0-2 /LPF (0-2); RBC Urine 0-2 /HPF (0-2); Squamous Epithelial Cell Urine 0-2 /HPF (0-2); WBC Urine 0-5 /HPF (0-5)
[2023-03-23] MEDS: Atorvastatin Calcium 80 MG TABLET PO (19:56)
[2023-03-23 20:10] LABS: Creatinine Urine 125.65 mg/dL; Total Protein Urine Random 11 mg/dL (<12)
[2023-03-23 21:43] LABS: Glucose, Whole Blood 224 mg/dL (60-115)
[2023-03-23] MEDS: Insulin Glargine,Hum.rec.anlog 100 UNIT/ML 10 ML VIAL 8 UNIT SUBCUT (21:52)
[2023-03-24] MEDS: oxyCODONE HCl Immed Release 5 MG TABLET PO ×2 (00:25→08:00)
[2023-03-24 03:08] VITALS: BP 130/60; PULSE 96; RESP 20; TEMP 36.1; O2SAT 92
[2023-03-24 07:28] LABS: Glucose, Whole Blood 153 mg/dL (60-115)
[2023-03-24 07:45] VITALS: BP 149/65; PULSE 69; RESP 20; TEMP 36.8; O2SAT 91
[2023-03-24] MEDS: Ferrous Sulfate 324 MG TABLET.DR PO (08:00)
[2023-03-24] MEDS: lisinopriL 20 MG TABLET PO (08:00)
[2023-03-24] MEDS: Escitalopram Oxalate 5 MG TABLET PO (08:00)
[2023-03-24] MEDS: amLODIPine Besylate 2.5 MG TABLET PO (08:00)
[2023-03-24] MEDS: Insulin Lispro 100 UNIT/ML 3 ML VIAL SUBCUT (08:01)
[2023-03-24 11:24] VITALS: BP 109/52; PULSE 75; RESP 16; TEMP 36.8; O2SAT 91
[2023-03-24 11:32] LABS: Glucose, Whole Blood 98 mg/dL (60-115)
[2023-03-24 11:47] VITALS: BP 109/52; PULSE 75; O2SAT 91
--- NOTE | 2023-03-24 11:57 | P.DS_ITS ---
DS: Providers Provider Date of Service: 03/24/23 Date of admission: 03/22/23 23:55 Date of discharge: 03/24/23 Primary care physician: WEI Wilson Consults: 03/23/23 07:53 Consult to Orthopedics Routine Consulting Provider: [facility] Reason for consultation: humeral fracture, right, fall 03/23/23 07:58 Consult to Nephrology Routine Consulting Provider: [facility] Reason for consultation: ? GINO vs CKD DS: Diagnosis Discharge Diagnosis (1) Closed right humeral fracture: Status: Acute DS: Summary Hospital Course Hospital Course: 82-year-old pleasant white female with history of hypertension, type 2 diabetes mellitus and multiple sclerosis and who lives at home alone comes to the emergency room for evaluation following a witnessed accidental fall with associated head strike and right arm pain. She was at her grandson's house for [place] dinner when she tripped on a step and fell hitting her head and loosing consciousness. She states that the next thing she recalls was getting helped onto a seat. She denies any additional complains at this time. Hospital Course Admitted to telemetry where monitor failed to show acute dysrhythmia. CT of the spine and head were both negative. Shoulder x-ray demonstrated a closed proximal right humeral fracture for which she was seen in consultation by Orthopedics. Orthopedics recommended home physical therapy/sling and will follow-up in the office in 6 weeks. Patient was seen by Physical therapy who recommended acute rehab however despite multiple attempts patient refused rehab. She will be discharged home with home physical therapy. Time Attestation Discharge coordination time: Greater than 30 minutes Quality: Safe Use of Opioids Does Pt have an Active Cancer Diagnosis on the Problem List?: No Quality: Stroke Does the patient have a stroke diagnosis?: No Physical Exam Vital Signs: Vital Signs: Last Vital Signs Temp 98.3 F 03/24/23 11:24 Pulse 75 03/24/23 11:24 Resp 16 03/24/23 11:24 BP 109/52 L 03/24/23 11:24 Pulse Ox 91 L 03/24/23 11:24 O2 Del Method Room Air 03/24/23 11:24 O2 Flow Rate 95 03/22/23 19:43 BMI result Body Mass Index 24.6 Const: Other: Awake alert oriented x3 no acute distress Resp: Other: clear to auscultation bilaterally no rales rhonchi or whe Cardio: Other: no S4; positive S1-S2; no S3 murmurs rubs gallops Extrem: Other: are right arm with decreased range of motion; sling applied DS: Data Data Completed and Pending Labs on day of discharge: Laboratory Results - last 24 hr 03/23/23 03/23/23 03/24/23 15:30 21:38 07:24 Hold Purple Top POC Glucose 224 H 153 H Total Creatine Kinase Urine Color Yellow Urine Appearance Clear Urine pH 6.5 Ur Specific [place] 1.020 Urine Protein Negative Urine Glucose (UA) Negative Urine Ketones Negative Urine Blood Negative Urine Nitrite Negative Ur Leukocyte Esterase Trace H Urine RBC 0-2 Urine WBC 0-5 Ur Squamous Epith Cells 0-2 Urine Bacteria None Seen Hyaline Casts 0-2 U Random Total Protein 11 Ur Random Sodium 45.0 Urine Creatinine 125.65 03/24/23 03/24/23 08:20 11:29 Hold Purple Top SEE NOTE POC Glucose 98 Total Creatine Kinase 478 H Urine Color Urine Appearance Urine pH Ur Specific [place] Urine Protein Urine Glucose (UA) Urine Ketones Urine Blood Urine Nitrite Ur Leukocyte Esterase Urine RBC Urine WBC Ur Squamous Epith Cells Urine Bacteria Hyaline Casts U Random Total Protein Ur Random Sodium Urine Creatinine Discharge Plan Discharge Anticipated Discharge Date/Time: 03/24/23 11:54 Patient Disposition: Home Health Service Discharge Diagnosis: Humeral fracture lip laceration Fall Referrals: Elliott Ferrera PA-C [Physician International Tax Manager] - 6 Weeks Ace Wong PA [Primary Care Provider] - 1 Week Discharge Medications: New oxycodone 5 mg Tablet 5 mg PO Q6H PRN (Reason: Pain, Moderate(Pain Scale 4-6)) Qty: 20 0RF Rx Instructions: Partial Fill upon patient request. Continued lidocaine [Lidoderm] 5 % adhesive patch,medicated 1 patch topical DAILY MDD remove after 12 hours PRN (Reason: pain) Qty: 30 0RF Rx Instructions: leave on most painful area for up to 12 hrs cyclobenzaprine 5 mg tablet 5 mg PO Q8H PRN (Reason: pain (scale score 7-10)) 5 Days Qty: 10 0RF amlodipine 2.5 mg tablet 2.5 mg PO DAILY ferrous sulfate 325 mg (65 mg iron) tablet 325 mg PO DAILY atorvastatin 80 mg tablet 80 mg PO BEDTIME lisinopril 20 mg tablet 20 mg PO DAILY glipizide 5 mg tablet 10 mg PO BID escitalopram oxalate 5 mg tablet 5 mg PO DAILY insulin glargine [Lantus Solostar U-100 Insulin] 100 unit/mL (3 mL) insulin pen 8 unit subcut BEDTIME Trulicity 1.5 mg/0.5 mL pen injector 1.5 mg subcut Q7D diphenhydramine HCl [Benadryl] 25 mg Capsule 25 mg PO BEDTIME loratadine 10 mg Tablet 10 mg PO DAILY cholecalciferol (vitamin D3) 25 mcg (1,000 unit) Tablet 25 mcg PO DAILY melatonin 10 mg Tablet 10 mg PO BEDTIME Discharge Orders: Discharge Order (Routine); Ordered 03/24/23 Ordered By: Malcolm Rangel Diet: Advance to usual diet Activity on Discharge: As tolerated Stand Alone Forms: Patient Portal Discharge page Care Plan Goals: Right proximal humerus fracture- non op sling for comfort no lifting or abduction f/u in office in 6 weeks w xrays Health Concerns: Humeral fracture lip laceration Fall Plan of Treatment: Follow up with orthopedic surgery in 6 weeks Assessment: See discharge summary
--- NOTE | 2023-03-24 12:43 | W.MHC.F2F ---
Service Date Service Date: 03/24/23 Encounter Date of encounter: 03/24/23 Encounter: acute hospitalization Reasons for Services Signs and symptoms assessed: fractured right humerus Reason for fci: other ( monitor distal pulses and range of motion right upper extremity) Reason for physical therapy: therapeutic exercises and restore joint function Homebound: Leaving the home is medically contraindicated at this time without the asist of a device and/or another person due th the listed conditions above and below. Reason homebound: unsteady gait / fall risk and unable to drive Certification: Based on the above findings, I certify that this patient is confined to the home and needs intermittent fci care, physical therapy and/or speech therapy, or continues to need occupational therapy. The patient is under my care, and I have initiated the establishment of the plan of care. The patient will be followed by a physician who will periodically review the plan of care. Time Spent With Patient Time: Total time managing care of this patient today ____ minutes.
--- NOTE | 2023-03-24 12:51 | MHC.CM.PN ---
Pt was accepted at acute rehab, CM spoke with her about it and she said that she will not go. She insists on going home. She does not have any services at home. CM spoke with pt's daughter, who tried to convince pt to go to rehab, but pt refused. Referrals were submitted for [facility]. Cm spoke with pt about this and encouraged her to try meals on wheels. Daughter to pick her up to bring her home today. Home care services from [facility].
== END 2023-03-24 14:30 | disposition home health service (06) ==
LOC: HO.ED 23:29 → HO.EDOVER 03-23 01:57 → HO.IMC 03-23 07:21
PROVIDERS: Internal Medicine Hypertension Specialist; Nurse Practitioner Acute Care; Admitting Provider Internal Medicine; Emergency Provider Emergency Medicine; PCP Physician Assistant Medical; Visit Provider Hospitalist
DX: S42.224A 2-part nondisplaced fracture of surgical neck of right humerus, initial encounter for closed fracture (principal); S01.511A Laceration without foreign body of lip, initial encounter; S06.9X9A Unspecified intracranial injury with loss of consciousness of unspecified duration, initial encounter; R55 Syncope and collapse; W01.0XXA Fall on same level from slipping, tripping and stumbling without subsequent striking against object, initial encounter; Y93.9 Activity, unspecified; Y92.9 Unspecified place or not applicable; Y99.9 Unspecified external cause status; G35 Multiple sclerosis; E11.9 Type 2 diabetes mellitus without complications; I10 Essential (primary) hypertension; Z79.899 Other long term (current) drug therapy
CPT/HCPCS: 12013; 36415; 70450; 71045; 72125; 73030; 80048; 80076; 81001; 82550; 82570; 82947; 83690; 83880; 84156; 84300; 84484; 85025; 93005; 96361; 96372; 96374; 96375; 96376; 97110; 97161; 97165; 99222; 99285; J1170; J1650; J2270; J2405

== ENCOUNTER → 2023-03-22 19:52 | Outpatient (BNV) | payer MEDICARE, SELFPAY | PROVIDERS: Admitting Provider Internal Medicine; Emergency Provider Emergency Medicine; PCP Physician Assistant Medical; Visit Provider Internal Medicine | DX: I44.0 Atrioventricular block, first degree (principal) | CPT/HCPCS: 93010 ==

== ENCOUNTER → 2023-03-22 23:55 | Outpatient (BNV) | payer MEDICARE, SELFPAY | PROVIDERS: Admitting Provider Internal Medicine; Emergency Provider Emergency Medicine; PCP Physician Assistant Medical; Visit Provider Internal Medicine | DX: R55 Syncope and collapse (principal); S42.224A 2-part nondisplaced fracture of surgical neck of right humerus, initial encounter for closed fracture; S01.511A Laceration without foreign body of lip, initial encounter | CPT/HCPCS: 99223; 99232; 99239; G0180 ==

== ENCOUNTER → 2023-03-22 23:55 | Outpatient (BNV) | payer MEDICARE, SELFPAY | PROVIDERS: Admitting Provider Internal Medicine; Emergency Provider Emergency Medicine; PCP Physician Assistant Medical; Visit Provider Physician Assistant | DX: S42.224A 2-part nondisplaced fracture of surgical neck of right humerus, initial encounter for closed fracture (principal); W19.XXXA Unspecified fall, initial encounter | CPT/HCPCS: 99221 ==

== ENCOUNTER 2023-08-31 14:32 | Outpatient (AMB) | payer MEDICARE, SELFPAY ==
--- NOTE | 2023-08-31 14:37 | AM.OFFWIN_ITS ---
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 Productive off and on. Yellow phlegm. Patient Tobacco Use Status: Former Tobacco user Quit Date: 2007 Allergies cephalexin [From Keflex] Allergy (Verified 08/31/23 15:07) Anaphylaxis Penicillins [PCN] Allergy (Verified 08/31/23 15:07) Anaphylaxis nirmatrelvir [From Paxlovid (EUA)] Adverse Reaction (Verified 08/31/23 15:07) Unknown ritonavir [From Paxlovid (EUA)] Adverse Reaction (Verified 08/31/23 15:07) Unknown Medication List - Last Reconciled 08/31/23 by JOHN Riggs amlodipine 2.5 mg PO DAILY atorvastatin 80 mg PO QAM benzonatate 100 mg PO BID PRN cholecalciferol (vitamin D3) 25 mcg PO DAILY cyclobenzaprine 5 mg PO Q8H PRN 5 days diphenhydramine HCl (Benadryl) 25 mg PO BEDTIME dulaglutide (Trulicity) 1.5 mg subcut Q7D escitalopram oxalate 5 mg PO DAILY glipizide 10 mg PO BID insulin glargine (Lantus Solostar U-100 Insulin) 16 units subcut BEDTIME lidocaine 5% (Lidoderm) 1 patch topical DAILY PRN MDD remove after 12 hours lisinopril 20 mg PO DAILY loratadine 10 mg PO DAILY melatonin 10 mg PO BEDTIME prednisone 30 mg (3 x 10 mg) PO DAILY Do you need a note to return to daycare/school/sports/work: No HPI HPI Comments History of Present Illness Details Patient is a 83-year-old female in today for sick visit. Patient reports symptoms cough, nasal congestion, chest congestion, x3 days. Patient states that the cough gets worse at night and has kept her up through the night. Denies fever chills, denies chest pain shortness a breath, denies nausea vomiting or diarrhea. Patient has utilized fluticasone and to cetirizine with mild effect. Denies sick contacts. Will order upper respiratory swab [facility] Medical History Cardiac arrest Diabetes mellitus Multiple sclerosis Social History Household Members: None [facility] Do you presently have visiting nurse or other home services: No Alcohol intake: current Alcohol intake frequency: holidays/special occasions only Alcohol type: wine Patient Tobacco Use Status: Former Tobacco user Second Hand Smoke Exposure: No service: No Review of Systems Const All systems reviewed & are unremarkable except as noted in HPI and below Denies chills and Denies fever(s) Eyes Denies blurry vision Card Denies chest pain and Denies dyspnea Resp Reports cough, Denies dyspnea and Denies wheezing GI Denies diarrhea, Denies nausea and Denies vomiting Musc Denies numbness and Denies tingling Neuro Denies numbness and Denies tingling Aller/Immun Denies wheezing Physical Exam Vital Signs: Last Vital Signs Temp 98.8 F 08/31/23 14:39 Pulse 91 08/31/23 14:39 BP 118/60 08/31/23 14:39 Pulse Ox 96 08/31/23 14:39 Oxygen Delivery Method Room Air 08/31/23 14:39 BMI result Body Mass Index 24.8 Patient's vital signs reviewed and stable. Const Other: Appearance: Alert.? Oriented X3.? No acute distress.? Head: Normocephalic, atraumatic. Eyes: Sclera white. ENT: Pharynx normal.? Neck: Normal inspection.? Neck supple.?Full ROM. CVS: Normal heart rate and rhythm.? Pulses normal.? Respiratory: No respiratory distress.? Breath sounds normal.? Neuro: Oriented X 3.? No motor deficit.? No sensory deficit. CN 2-12 intact Assessment & Plan Assessment & Plan (1) Upper respiratory infection: Comment: Will give patient prednisone and benzonatate. Patient has educated on side effects of these medications. Patient has been educated on signs of worsening symptoms and when to return to the walk-in or when to present to the ED Code(s): J06.9 - Acute upper respiratory infection, unspecified Qualifiers: URI type: unspecified URI Qualified Code(s): J06.9 - Acute upper respiratory infection, unspecified Plan: Will call with results of upper respiratory swab Plan Follow-up with PCP. Orders: Orders SARS-CoV2/FLU/RSV Today J06.9 - Acute upper respiratory infection, unspecified Medications: New benzonatate 100 mg PO BID PRN 20 caps 0RF cough prednisone 30 mg (3 x 10 mg) PO DAILY 15 tabs 0RF Coding Level of Care Code Est Pt Level 3 (57631) Diagnoses Upper respiratory tract infection, unspecified type J06.9 URI type: unspecified URI Time Spent (min) 24
[2023-08-31 14:39] VITALS: BP 118/60; PULSE 91; TEMP 37.1; O2SAT 96; BMI 24.8
== END 2023-08-31 15:17 | disposition home or self-care (01) ==
PROVIDERS: PCP Physician Assistant Medical; Visit Provider Nurse Practitioner Primary Care
DX: J06.9 Acute upper respiratory infection, unspecified (principal)
CPT/HCPCS: 99213

== ENCOUNTER 2023-08-31 16:56 | Outpatient (REF) | payer MEDICARE, SELFPAY ==
[2023-08-31 19:50] LABS: Influenza A PCR NEGATIVE (Negative); Influenza B PCR NEGATIVE (Negative); Resp Syncy Virus RNA Qual PCR NEGATIVE (Negative); SARS COV2 PCR INHOUSE NEGATIVE (Negative)
== END 2023-08-31 16:57 | disposition home or self-care (01) ==
LOC: HO.HHCLNP 16:56
PROVIDERS: Visit Provider Nurse Practitioner Primary Care
DX: J06.9 Acute upper respiratory infection, unspecified (principal)
CPT/HCPCS: 0241U

== ENCOUNTER 2023-09-08 11:56 | Outpatient (AMB) | payer MEDICARE, SELFPAY ==
--- NOTE | 2023-09-08 12:01 | MHC.OFFWIV ---
Intake Vital Signs 09/08/23 12:02 Height 5 ft 3 in Weight 104 lb BMI 18.4 BP 118/70 Blood Pressure Location Rt brachial Position Sitting Pulse 102 H Pulse Source Pulse Oximeter Temp 98.0 F Temp Source Oral Pulse Oximetry (%) 97 Oxygen Delivery Method Room Air Intake Visit Reasons: EP cough, congestion Intake Note: pt is here for cough and congestion and states she was cally last week and not getting better feels like shes getting worse Patient Tobacco Use Status: Former Tobacco user Allergies cephalexin [From Keflex] Allergy (Verified 09/08/23 12:04) Anaphylaxis Penicillins [PCN] Allergy (Verified 09/08/23 12:04) Anaphylaxis nirmatrelvir [From Paxlovid (EUA)] Adverse Reaction (Verified 09/08/23 12:04) Unknown ritonavir [From Paxlovid (EUA)] Adverse Reaction (Verified 09/08/23 12:04) Unknown Do you need a note to return to daycare/school/sports/work: No HPI HPI Comments History of Present Illness Details Patient is an 83yo F who presents to office with cough and cold symptoms SHe was seen 08/31/23 and negative covid/flu/rsv She was given tessalon and prednisone which she took with some relief She has had symptoms ongoing now for 2 weeks States cough with phlegm production Intermittent chills without fever No CP or SOB + congestion Has also tried OTC cough medicine without relief PFSH Medical History Cardiac arrest Diabetes mellitus Multiple sclerosis Social History Household Members: None Housing: Condominium Do you presently have visiting nurse or other home services: No Alcohol intake: current Alcohol intake frequency: holidays/special occasions only Alcohol type: wine Patient Tobacco Use Status: Former Tobacco user Second Hand Smoke Exposure: No service: No Review of Systems Const Reports chills and Denies fever(s) ENT Denies otalgia, Reports nasal discharge and Denies sore throat Card Denies chest pain Resp Reports chest congestion and Reports cough Musc Denies myalgias Skin/Breast Denies rash Physical Exam Vital Signs: Last Vital Signs Temp 98.0 F 09/08/23 12:02 Pulse 102 H 0612/24 12:02 BP 118/70 09/08/23 12:02 Pulse Ox 97 09/08/23 12:02 Oxygen Delivery Method Room Air 09/08/23 12:02 BMI result Body Mass Index 18.4 General: Non-toxic, NAD. Speaking full sentences. Skin: Warm dry throughout Eye: EOMI HENT: Airway patent. Uvula midline. No pharyngeal erythema or edema. 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 Bilateral canals clear. TM non-erythematous, non-bulging. No TM perforation or hemotympanum noted. Respiratory: Minimal rhonchi L side but otherwise, CTA bilaterally. No wheezes, rales Cardiac: RRR. No murmur MSK: Full ROM extremities. Neurology: A/O. No aphasia or facial droop. Psych: Good mood and affect Assessment & Plan Assessment & Plan (1) Acute bacterial bronchitis: Code(s): J20.8 - Acute bronchitis due to other specified organisms; B96.89 - Other specified bacterial agents as the cause of diseases classified elsewhere Plan: Patient seen and evaluated. No crackles or concern large PNA Initially was going to cover with azitromycin but + concern prolong QT with med so will take with doxy Pt states she does not go in sun often F/U with PCP. Discussed s/s that would indicate worsening infection and when to call. Patient gave verbal understanding and had no additional questions or concerns at time of discharge All questions answered Medications: New doxycycline hyclate 100 mg PO BID 14 tabs 0RF Coding Level of Care Code Est Pt Level 3 (91163) Diagnoses Acute bacterial bronchitis J20.8; B96.89
[2023-09-08 12:02] VITALS: BP 118/70; PULSE 102; TEMP 36.7; O2SAT 97; BMI 18.4
== END 2023-09-08 12:49 | disposition home or self-care (01) ==
PROVIDERS: PCP Physician Assistant Medical; Visit Provider Physician Assistant
DX: J20.8 Acute bronchitis due to other specified organisms (principal); B96.89 Other specified bacterial agents as the cause of diseases classified elsewhere
CPT/HCPCS: 99213

== ENCOUNTER 2023-09-13 14:46 | Outpatient (AMB) | payer MEDICARE, SELFPAY ==
--- NOTE | 2023-09-13 15:12 | AM.OFFWIN_ITS ---
Intake Vital Signs 09/13/23 15:14 Height 5 ft 3 in Weight 137 lb BMI 24.3 BP 116/64 Blood Pressure Location Rt brachial Position Sitting Pulse 90 Pulse Source Pulse Oximeter Temp 98.3 F Temp Source Oral Pulse Oximetry (%) 97 Oxygen Delivery Method Room Air Intake Visit Reasons: EP-Vomiting ?abx Skin Rash Intake Note: Pt here c/o vomiting and burning sensation on skin Patient Tobacco Use Status: Former Tobacco user Allergies cephalexin [From Keflex] Allergy (Verified 09/13/23 15:13) Anaphylaxis Penicillins [PCN] Allergy (Verified 09/13/23 15:13) Anaphylaxis nirmatrelvir [From Paxlovid (EUA)] Adverse Reaction (Verified 09/13/23 15:13) Unknown ritonavir [From Paxlovid (EUA)] Adverse Reaction (Verified 09/13/23 15:13) Unknown Do you need a note to return to daycare/school/sports/work: No HPI HPI Comments History of Present Illness Details Patient is an 83-year-old female complaining of lingering cough with yellow sputum, nausea and vomiting x3 days after taking doxycycline for 6 days. Patient was evaluated here on September 07, diagnosed with ?acute bacterial bronchitis and treated with doxycycline. She states she had been taking the doxycycline but has been vomiting every day for the past 3 days. She does not want to take the medication anymore and would like something else. Patient was initially going to be prescribed a Z-Rik but her last EKG her QTC was 460 so the provider went with doxycycline. 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 She denies any lingering fevers [facility] Medical History (Updated 09/13/23 @ 15:55 by Jazzmine Stover PA-C) Cardiac arrest Diabetes mellitus Multiple sclerosis Surgical History (Updated 09/13/23 @ 15:14 by Humberto Marcum CMA) No pertinent past surgical history Social History Household Members: None Housing: Condominium Do you presently have visiting nurse or other home services: No Alcohol intake: current Alcohol intake frequency: holidays/special occasions only Alcohol type: wine Patient Tobacco Use Status: Former Tobacco user Second Hand Smoke Exposure: No service: No Review of Systems Const All systems reviewed & are unremarkable except as noted in HPI and below Physical Exam Vital Signs: Last Vital Signs Temp 98.3 F 09/13/23 15:14 Pulse 90 09/13/23 15:14 BP 116/64 09/13/23 15:14 Pulse Ox 97 09/13/23 15:14 Oxygen Delivery Method Room Air 09/13/23 15:14 BMI result Body Mass Index 24.3 Const General: cooperative, healthy appearing, comfortable and no acute distress Orientation/consciousness: patient oriented x3 Limitations: no limitations HEENT Head: Yes normal to inspection Ears: external ears normal and TM's normal bilaterally General nose exam: Normal external nose present, Normal nares present and No nasal discharge present Face and sinus: Yes normal facial exam Mouth: Normal oral and palatal mucosa present and moist mucous membranes Throat: Yes posterior oropharynx normal Eyes General: appearance normal, both eyes and all related structures Neck Neck: Yes normal visual inspection Resp Effort & Inspection: normal respiratory effort, able to speak in complete sentences, no respiratory distress, not tachypneic, no tripod positioning and no use of accessory muscles Auscultation: clear to auscultation bilaterally Cardio Rate: regular rate Rhythm: regular rhythm Heart sounds: normal S1 and S2 Skin General skin exam: no rashes or lesions noted Neuro General: patient oriented x3 Extrem General: Yes normal to inspection and Yes no clubbing, cyanosis or edema Office Procedures EKG [id number], Complete Assessment & Plan Assessment & Plan (1) Cough: Code(s): R05.9 - Cough, unspecified Qualifiers: Cough type: acute Qualified Code(s): R05.1 - Acute cough Plan: QTC is 425, we will send Z-Rik to patient's pharmacy as only for 5 days Plan See above Medications: New azithromycin take 500 mg today (day 1), then 250 mg for 4 days (days 2-5) PO 6 tabs 0RF Coding Level of Care Code Est Pt Level 3 (00879) Diagnoses Acute cough R05.1 Cough type: acute CPT Codes EKG - CPT: 33773-[id number], Complete ([id number])
[2023-09-13 15:14] VITALS: BP 116/64; PULSE 90; TEMP 36.8; O2SAT 97; BMI 24.3
== END 2023-09-13 16:38 | disposition home or self-care (01) ==
PROVIDERS: PCP Physician Assistant Medical; Visit Provider Physician Assistant
DX: R05.1 Acute cough (principal)
CPT/HCPCS: 93000; 99213